=== PATIENT | female | born 2005 | race Caucasian/White ===

== ENCOUNTER 2023-07-28 10:03 | Emergency (ER) | payer OTHER ==
[2023-07-28 10:25] VITALS: O2SAT 100
[2023-07-28 10:35] LABS: BILIRUBIN,URINE NEGATIVE (NEGATIVE); GLUCOSE, URINE (UA) NEGATIVE (NEGATIVE); KETONES,URINE (UA) NEGATIVE (NEGATIVE); LEUKOCYTE ESTERASE, URINE LARGE (NEGATIVE); NITRITE,URINE NEGATIVE (NEGATIVE); OCCULT BLOOD,URINE LARGE (NEGATIVE); PH,URINE 6.5 PH (5.0-7.5); PROTEIN,URINE 100 mg/dL (NEGATIVE); UROBILINOGEN,URINE 0.2 (NORMAL) E.U./dL (NORMAL)
[2023-07-28 10:38] LABS: CLARITY,URINE CLOUDY (CLEAR); HCG UR QUAL NEGATIVE
[2023-07-28 10:58] LABS: RBC,URINE TNTC /HPF (0-5); SQUAMOUS EPITHELIAL CELL,UR FEW Squamous (<= Few); WBC,URINE >25 /HPF (0-5)
[2023-07-28 10:59] LABS: BACTERIA,URINE Moderate /HPF (None Seen)
--- NOTE | 2023-07-28 11:18 | ED Physician Documentation ---
PD HPI FEMALE - Stated complaint Stated Complaint: - Chief complaint Chief Complaint: UTI - History obtained from History obtained from: Patient - Additional information Additional information: Patient is a 18-year-old female presenting for evaluation of dysuria, frequency and urgency starting last night. Has noticed a little blood in her urine. States this feels similar to when she has had prior UTIs. No fever. No abdominal pain, nausea or vomiting. 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: Other - Present Medications Home Medications: Ambulatory Orders Medication Instructions Recorded Confirmed Nitrofurantoin [Macrobid] 1 cap PO BID #9 cap 07/28/23 Phenazopyridine HCl [Pyridium] 200 mg PO TID PRN #6 tablet 07/28/23 - Allergies Allergies/Adverse Reactions: Allergies Allergy/AdvReac Type Severity Reaction Status Date / Time No Known Drug Allergies Allergy Verified 07/28/23 10:12 - Social History Does the pt smoke?: No Smoking Status: Never smoker Does the pt drink ETOH?: No Does the pt have substance abuse?: No - Immunizations Immunizations are current?: Yes - POLST Patient has POLST: No Results - Vitals Vitals: Vital Signs - 24 hr 07/28/23 07/28/23 10:12 11:44 Temperature 36.6 C Heart Rate 86 72 Respiratory 16 14 Rate Blood Pressure 107/75 122/76 O2 Saturation 100 100 Oxygen O2 Source Room air - Labs Labs: Laboratory Tests 07/28/23 10:25 Urine Color YELLOW Urine Clarity CLOUDY Urine pH 6.5 Ur Specific [place] 1.020 Urine Protein 100 H Urine Glucose (UA) NEGATIVE Urine Ketones NEGATIVE Urine Occult Blood LARGE H Urine Nitrite NEGATIVE Urine Bilirubin NEGATIVE Urine Urobilinogen 0.2 (NORMAL) Ur Leukocyte Esterase LARGE H Urine RBC TNTC H Urine WBC >25 H Ur Squamous Epith Cells FEW Squamous Urine Bacteria Moderate H Ur Microscopic Review INDICATED Urine Culture Comments INDICATED Urine HCG, Qual NEGATIVE PD Medical Decision Making - ED course Complexity details: reviewed results, d/w patient ED course: Patient is a 18-year-old with UTI symptoms since last night. Vital signs are stable. Abdominal exam is benign. She is well-appearing, tolerating p.o. No flank pain. Urinalysis also suggest infection. Reflex culture is sent. Patient to be started on Macrobid as well as Pyridium. Counseled on treatment plan and concerning symptoms to return for. Departure - Departure Disposition: 01 Home, Self Care Clinical Impression: Urinary tract infection Condition: Stable Instructions: ED UTI Cystitis Female Prescriptions: Nitrofurantoin [Macrobid] 1 cap PO BID #9 cap Phenazopyridine HCl [Pyridium] 200 mg PO TID PRN #6 tablet PRN Reason: dysuria Comments: You have a urinary tract infection. I have sent a prescription for [address] medications [address] [facility] in [place]. The first is an antibiotic called Macrobid. Please make sure you complete the course of this medication. The second medication is called Pyridium which will help with the burning and discomfort. This will make your urine orange. Return to the ER with any worsening symptoms. Discharge Date/Time: 07/28/23 11:44
[2023-07-28] MEDS: PHENAZOPYRIDINE 100 MG TABLET PO STA (11:43)
[2023-07-28] MEDS: NITROFURANTOIN MACRO 100 MG CAPSULE PO STA (11:43)
[2023-07-28 11:54] VITALS: BP 122/76
== END 2023-07-28 11:44 | disposition home or self-care (01) ==
LOC: ED 10:03
DX: N39.0 Urinary tract infection, site not specified (principal)
CPT/HCPCS: 81001; 81025; 87077; 87086; 99283; A9270; 81003; 87181